=== PATIENT | female | born 1955 | race Caucasian/White ===

== ENCOUNTER → 2021-02-13 | Outpatient (CLI) | payer OTHER ==
[~2021-02-13] MED LIST: DAILY VALUE1 EACH PO; ELIQUIS2.5 MG PO; EUTHYROX75 MCG PO; FISH OIL 1,0001 EAC4 PO; HYDROCODON-ACE1 EAC6 PO; OXYCODON-ACETA1 EAC1 PO; PROZAC40 MG PO; VALIUM10 MG PO
== END ==
LOC: EXRD 13:00
DX: M80.051A Age-related osteoporosis with current pathological fracture, right femur, initial encounter for fracture (principal); M85.852 Other specified disorders of bone density and structure, left thigh
CPT/HCPCS: 77080

== ENCOUNTER → 2021-03-04 | Outpatient (CLI) | payer OTHER ==
[2021-03-04 13:08] LABS: HEMOGLOBIN 15.3 gm/dl (12.3-15.3); RED BLOOD COUNT 4.65 M/UL (4.00-5.10); WHITE BLOOD COUNT 7.1 K/UL (4.5-11.0)
[2021-03-04 14:12] LABS: BUN/CREATININE RATIO 29 (0-10)
== END ==
LOC: OPSV2 02-25 09:00 → EDSTATUS 11:00 → OPSV2 11:00
PROVIDERS: Orthopaedic Surgery
DX: Z01.818 Encounter for other preprocedural examination (principal)
CPT/HCPCS: 36415; 71046; 80048; 81001; 85025; 87081; 87086; 93005

== ENCOUNTER 2021-03-10 08:42 | Day surgery (SDC) | payer OTHER ==
[~2021-03-10] VITALS: Ht 180.3 cm; Wt 68.9 kg
[~2021-03-10 08:42] MED LIST changes: -ELIQUIS2.5 MG PO; -OXYCODON-ACETA1 EAC1 PO
[2021-03-10 09:35] LABS: BUN/CREATININE RATIO 21 (0-10)
[2021-03-10] MEDS ORDERED: OXYCODON-ACETA1 EAC1 PO (15:29)
[2021-03-11 03:17] LABS: RED BLOOD COUNT 3.78 M/UL (4.00-5.10)
[2021-03-11 03:18] LABS: HEMOGLOBIN 12.3 gm/dl (12.3-15.3)
[2021-03-11 03:50] LABS: BUN/CREATININE RATIO 26 (0-10)
[2021-03-11] MEDS ORDERED: ELIQUIS2.5 MG PO (11:35)
--- NOTE | 2021-03-11 13:55 | NUR ---
REPORT GIVEN TO JAYLEEN ADMITTING NURSE AT [id number]
== END 2021-03-11 16:36 | disposition home or self-care (01) ==
LOC: OR 08:42 → M/S 18:17 → OR 03-11 16:36
PROVIDERS: Orthopaedic Surgery
DX: T84.84XA Pain due to internal orthopedic prosthetic devices, implants and grafts, initial encounter (principal); M17.11 Unilateral primary osteoarthritis, right knee; E78.5 Hyperlipidemia, unspecified; F41.9 Anxiety disorder, unspecified; F32.9 Major depressive disorder, single episode, unspecified; E03.9 Hypothyroidism, unspecified; M54.9 Dorsalgia, unspecified; G89.29 Other chronic pain; J44.9 Chronic obstructive pulmonary disease, unspecified; F17.210 Nicotine dependence, cigarettes, uncomplicated; Z87.81 Personal history of (healed) traumatic fracture; Z88.0 Allergy status to penicillin; Z79.891 Long term (current) use of opiate analgesic; Z79.899 Other long term (current) drug therapy; Z20.822 Contact with and (suspected) exposure to COVID-19
CPT/HCPCS: 36415; 72170; 73502; 76000; 80048; 85025; 86850; 86900; 86901; 97161; 97166; J0171; J0690; J1100; J1170; J2001; J2704; J2710; J2795; J3370; J7030; J7050; J7120; U0002

== ENCOUNTER → 2021-04-22 | Outpatient (CLI) | payer OTHER ==
[~2021-04-22] MED LIST changes: +ELIQUIS 2.5 MG2.5 MG PO; +ELIQUIS2.5 MG PO; +OXYCODON-ACETA1 EAC1 PO; +PERCOCET 7.5-31 EACH PO
[2021-04-22 09:44] LABS: HEMOGLOBIN 14.3 gm/dl (12.3-15.3); RED BLOOD COUNT 4.31 M/UL (4.00-5.10); WHITE BLOOD COUNT 7.3 K/UL (4.5-11.0)
[2021-04-22 10:10] LABS: BUN/CREATININE RATIO 19 (0-10)
== END ==
LOC: OPSV2 08:00 → EDSTATUS 08:00 → OPSV2 08:04
PROVIDERS: Orthopaedic Surgery
DX: Z01.812 Encounter for preprocedural laboratory examination (principal); M17.11 Unilateral primary osteoarthritis, right knee
CPT/HCPCS: 80048; 85025

== ENCOUNTER 2021-05-07 09:20 | Day surgery (SDC) | payer OTHER ==
[~2021-05-07] VITALS: Ht 180.3 cm; Wt 67.2 kg
[~2021-05-07 09:20] MED LIST changes: -ELIQUIS 2.5 MG2.5 MG PO; -PERCOCET 7.5-31 EACH PO
[2021-05-07 10:36] LABS: BUN/CREATININE RATIO 24 (0-10)
[2021-05-07] MEDS ORDERED: PERCOCET 7.5-31 EACH PO (14:38)
[2021-05-08 06:27] LABS: HEMOGLOBIN 11.7 gm/dl (12.3-15.3); RED BLOOD COUNT 3.63 M/UL (4.00-5.10); WHITE BLOOD COUNT 11.8 K/UL (4.5-11.0)
[2021-05-08 07:11] LABS: BUN/CREATININE RATIO 21 (0-10)
[2021-05-08] MEDS ORDERED: ELIQUIS 2.5 MG2.5 MG PO (13:20)
== END 2021-05-08 14:49 | disposition home or self-care (01) ==
LOC: OR 09:20 → EDSTATUS 11:00 → M/S 17:55 → OR 05-08 14:49
PROVIDERS: Orthopaedic Surgery
DX: M17.11 Unilateral primary osteoarthritis, right knee (principal); Z20.822 Contact with and (suspected) exposure to COVID-19; E78.5 Hyperlipidemia, unspecified; M81.0 Age-related osteoporosis without current pathological fracture; M54.9 Dorsalgia, unspecified; G89.29 Other chronic pain; E07.9 Disorder of thyroid, unspecified; F41.9 Anxiety disorder, unspecified; Z79.899 Other long term (current) drug therapy
CPT/HCPCS: 36415; 73560; 80048; 85025; 86850; 86900; 86901; 97110-GP-CQ; 97116-GP-CQ; 97161; 97166; 97535; C1776; J0171; J0690; J1100; J1170; J2001; J2250; J2405; J2704; J2795; J3010; J3370; J7120; U0002